=== PATIENT | female | born 1995 | race American Indian/Alaskan Native ===

== ENCOUNTER 2017-11-03 19:42 | Emergency (ER) | payer MEDICAID ==
[2017-11-03 20:06] VITALS: BP 109/70; PULSE 78; RESP 14; TEMP 98.5; O2SAT 97
[2017-11-03] MEDS ORDERED: Albuterol 0.083% Inhal Sol (2.5 mg/3 mL) UD IH STA (20:12)
--- NOTE | 2017-11-03 20:12 | C.PDOC ---
History Of Present Illness 22 yo female w/o significant PMHx come inf or evaluation of cold sx since today AM associated with bodyaches, chills, runny nose, dry cough. Pt admits, similar sx in family members who was tested (+) Influenza. Otherwise, pt denies high fever, chills, drooling, ear discharges, trismus, headache, dizziness, neck pain , CP, SOB, cough, wheezing, abd. pain, V/D, back pain, UTI sx, rash. Ambulate to Ed for evaluation, not in any apparent distress. Time Seen by Provider: 11/03/17 20:11 Chief Complaint (Nursing): Flu-like Symptoms History Per: Patient Past Medical History Reviewed: Historical Data, Nursing Documentation, Vital Signs Vital Signs: Last Vital Signs Temp 98.5 F 11/03/17 20:03 Pulse 78 11/03/17 20:03 Resp 14 11/03/17 20:03 BP 109/70 11/03/17 20:03 Pulse Ox 97 11/03/17 20:12 - Medical History PMH: Asthma Surgical History: No Surg Hx Family History: States: No Known Family Hx - Social History Hx Tobacco Use: Yes Hx Alcohol Use: Yes Hx Substance Use: No - Immunization History Hx Tetanus Toxoid Vaccination: Yes Hx Influenza Vaccination: Yes Hx Pneumococcal Vaccination: No Review Of Systems Except As Marked, All Systems Reviewed And Found Negative. Constitutional: Positive for: Fever, Chills, Malaise ENT: Positive for: Nose Discharge, Nose Congestion. Negative for: Ear Discharge , Throat Pain Respiratory: Positive for: Cough. Negative for: Shortness of Breath, Wheezing Gastrointestinal: Negative for: Nausea, Vomiting, Abdominal Pain, Diarrhea Genitourinary: Negative for: Dysuria Musculoskeletal: Negative for: Neck Pain Skin: Negative for: Rash Neurological: Negative for: Weakness, Numbness, Altered Mental Status, Headache , Dizziness Physical Exam - Physical Exam Appears: Well, Non-toxic, No Acute Distress Skin: Normal Color, Warm, Dry, No Rash Head: Normacephalic Eye(s): bilateral: PERRL Ear(s): Bilateral: Normal Nose: No Flaring, Discharge (scant clear) Oral Mucosa: Moist, No Drooling Tongue: Normal Appearing Lips: Normal Appearing Throat: Erythema (mild B/L), No Drooling Neck: Trachea Midline, Supple, Other ((-) meningeal sign) Cardiovascular: Rhythm Regular Respiratory: No Decreased Breath Sounds, No Accessory Muscle Use, No Stridor, No Wheezing Gastrointestinal/Abdominal: Soft, No Tenderness, No Distention, No Guarding Back: No CVA Tenderness Extremity: Normal ROM, No Deformity, No Swelling Neurological/Psych: Oriented x3, Normal Speech ED Course And Treatment O2 Sat by Pulse Oximetry: 97 Pulse Ox Interpretation: Normal - Radiology CXR: Interpreted by Me, Viewed By Me CXR Interpretation: Yes: No Acute Disease Progress Note: On re-evaluation, pt is afebrile, hemodynamicaly stable. Non- toxic. AMbulatory in ED with stable gait. PUlseOx 97% RA. ENT: No acute findings. neck: SUpple, (-) meningeal sign. LUngs: CTA B/L, BS equal B/L. Abd : benign. Pt has clinical findings c/w Inflienza- like illness. Pt advised. ref. to [facility] in 2-3 days for re-eavl. return if any new changes. Disposition Counseled Patient/Family Regarding: Studies Performed, Diagnosis, Need For Followup - Disposition Referrals: Hattie Lopez MD [Medical Doctor] - Disposition: HOME/ ROUTINE Disposition Time: 21:05 Condition: STABLE Additional Instructions: ENCOURAGE FLUIDS TAKE MEDICATION PRESCRIBED FOLLOW UP WITH PMD IN 2-3 DAYS FOR RE-EVALUATION. RETURN TO ED IF ANY WORSENING OR NEW CHANGES. Prescriptions: Albuterol HFA [Ventolin HFA 90 mcg/actuation (8 g)] 1 puff IH Q6 #1 inhaler Benzonatate [Tessalon Perle] 100 mg PO TID #14 capsule Oseltamivir Phosphate [Tamiflu] 75 mg PO BID #10 capsule Instructions: Viral Syndrome (ED) Forms: [employer] (Greek) Print Language: NAMIBIAN - Clinical Impression Clinical Impression: Influenza-like illness
[2017-11-03] MEDS ORDERED: Albuterol-Ipratrop 3 mg / 0.5 (3 ml) UD ONE (20:21)
--- NOTE | 2017-11-04 10:49 | RAD ---
HISTORY: Cough COMPARISON: No prior. TECHNIQUE: Chest PA and lateral FINDINGS: LUNGS: No active pulmonary disease. PLEURA: No significant pleural effusion identified. No pneumothorax apparent. CARDIOVASCULAR: Normal. OSSEOUS STRUCTURES: No significant abnormalities. VISUALIZED UPPER ABDOMEN: Normal. OTHER FINDINGS: None. IMPRESSION: No active disease.
== END 2017-11-03 21:22 | disposition home or self-care (01) ==
LOC: C.ER 19:42
DX: J11.1 Influenza due to unidentified influenza virus with other respiratory manifestations (principal); F17.210 Nicotine dependence, cigarettes, uncomplicated

== ENCOUNTER 2019-03-08 12:31 | Emergency (ER) | payer MEDICAID ==
[2019-03-08 12:42] VITALS: BMI 25.4
[2019-03-08] MEDS ORDERED: Tetanus/Diphtheria Toxoids 0.5 ml Syringe IM ONE ×2 (13:02→13:12)
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
[2019-03-08] MEDS ORDERED: ceFAZolin IV 1 gm in Dextrose 1 GM/50 ML BAG IVPB STA (14:11)
[2019-03-08 14:50] VITALS: BP 136/76; PULSE 82; RESP 18; TEMP 98.1
[2019-03-08] MEDS ORDERED: ceFAZolin IV 1 gm in Dextrose 1 GM/50 ML BAG IVPB ONE (15:00)
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
[2019-03-09 12:21] VITALS: O2SAT 96
== END 2019-03-08 14:50 | disposition home or self-care (01) ==
LOC: C.ER 12:31
DX: S61.412A Laceration without foreign body of left hand, initial encounter (principal); W26.9XXA Contact with unspecified sharp object(s), initial encounter
CPT/HCPCS: 73140; 90471; 90714; 96365; 96375; 99285; J0690; J1885; J2270